=== PATIENT | male | born 1980 | race Caucasian/White ===

== ENCOUNTER 2022-03-27 07:36 | Emergency (ER) | payer OTHER ==
[~2022-03-27] VITALS: Ht 188 cm; Wt 114.3 kg
[2022-03-27] MEDS ORDERED: KETO10 PO (08:49)
== END 2022-03-27 09:40 | disposition home or self-care (01) ==
LOC: ER 07:36
DX: S90.31XA Contusion of right foot, initial encounter (principal); F17.200 Nicotine dependence, unspecified, uncomplicated; Z88.5 Allergy status to narcotic agent; W22.8XXA Striking against or struck by other objects, initial encounter
CPT/HCPCS: 73630; A9270; J1885